=== PATIENT | female | born 1990 | race American Indian/Alaskan Native ===

== ENCOUNTER 2019-02-10 07:19 | Inpatient (IN) | payer OTHER ==
[2019-02-10] MEDS ORDERED: FAMOTIDINE 20 MG/2 ML INJ IV ONE ×2 (07:40→08:30)
[2019-02-10] MEDS ORDERED: BICITRA ORAL LIQD 30ML ONE (07:41)
[2019-02-10] MEDS ORDERED: METOCLOPRAMIDE 10 MG/2 ML INJ ONE (07:41)
[2019-02-10] MEDS ORDERED: ceFAZolin/Water 2 GM/20 ML 2 GM/20 ML SYRINGE IV ONE (07:41)
[2019-02-10] MEDS ORDERED: LACTATED RINGERS 2,000 ML ONE (07:46)
--- NOTE | 2019-02-10 07:54 | History and Physical Report ---
History of Present Illness Date of examination: 02/10/19 Date of admission: 02/10/19 07:19 Chief complaint: Repeat C Section History of present illness: Pt is a 29yo BF EDC 02/17/19; EGA 39 0/7 weeks presents for a Repeat C Section. She received care at [facility] since 10 weeks and co-managed with [facility] for previous C Section x 2 and Morbid obesity. records are available and GBS is Negative. Past History Past Medical History: other (morbid obesity) Past Surgical History: section (x2) Family/Genetic History: none Social history: no significant social history, - Obstetrical History Expected Date of Delivery: 02/17/19 Actual Gestation: 39 Week(s) 0 Day(s) Medications and Allergies Allergies Allergy/AdvReac Type Severity Reaction Status Date / Time No Known Allergies Allergy Verified 02/10/19 08:15 Active Meds: Active Medications Citric Acid/Sodium Citrate (Bicitra) 30 ml PO ONCE ONE Stop: 02/10/19 07:48 Famotidine (Pepcid) 20 mg IV ONCE ONE Stop: 02/10/19 07:48 Metoclopramide HCl (Reglan) 10 mg IV ONCE ONE Stop: 02/10/19 07:48 Review of Systems All systems: negative - Vital Signs Vital signs: Vital Signs Pulse BP 80 131/74 02/10/19 07:47 02/10/19 07:47 Temp Pulse Resp BP Pulse Ox 80 131/74 02/10/19 07:47 02/10/19 07:47 - Physical Exam Breasts: Positive: deferred Cardiovascular: Regular rate Lungs: Positive: Clear to auscultation Abdomen: Positive: normal appearance Genitourinary (Female): Positive: normal external genitalia Uterus: Positive: enlarged Extremities: Positive: normal - Obstetrical FHR: category 1 Uterine Contraction Monitor Mode: External Results Result Diagrams: 02/10/19 07:54 All other labs normal. Assessment and Plan - Patient Problems (1) 39 weeks gestation of Onset Date: 02/10/19 Current Visit: Yes Status: Acute Plan to address problem: A: IUP @ 39 0/7 weeks Previous C Section x 2 Morbid obesity P: Admit to L&D for repeat C Section (2) Previous section Onset Date: 02/10/19 Current Visit: Yes Status: Acute
[2019-02-10] MEDS ORDERED: ceFAZolin/Water 2 GM/20 ML 2 GM/20 ML SYRINGE IV NR (08:00)
[2019-02-10] MEDS ORDERED: LACTATED RINGERS 1,000 ML IV SCH (08:00)
[2019-02-10] MEDS ORDERED: OXYTOCIN 20 UNIT/1000ML DRIP 20 UNITS/1,000 ML BAG IV SCH ×2 (08:00→11:00)
[2019-02-10 08:05] LABS: Basophils # (Auto) 0.1 K/mm3 (0.0-0.1); Basophils % (Auto) 0.9 % (0.0-1.8); Eosinophils # (Auto) 0.1 K/mm3 (0.0-0.4); Eosinophils % (Auto) 1.4 % (0.0-4.3); Hematocrit 37.6 % (30.3-42.9); Lymphocytes # (Auto) 1.9 K/mm3 (1.2-5.4); Lymphocytes % (Auto) 25.3 % (13.4-35.0); Mean Corpuscular HGB Conc 35 % (30-34); Mean Corpuscular Volume 95 fl (79-97); Monocytes # (Auto) 0.6 K/mm3 (0.0-0.8); Monocytes % (Auto) 8.2 % (0.0-7.3); Platelet Count 174 K/mm3 (140-440); Red Blood Count 3.98 M/mm3 (3.65-5.03); Red Cell Distribution Width 12.8 % (13.2-15.2)
--- NOTE | 2019-02-10 08:11 | Anesthesia Consultation ---
Anesthesia Consult and Med Hx Date of service: 02/10/19 - Airway Anesthetic Teeth Evaluation: Good ROM Head & Neck: Adequate Mental/Hyoid Distance: Adequate Mallampati Class: Class II Intubation Access Assessment: Good - Pulmonary Exam CTA: Yes - Cardiac Exam Cardiac Exam: RRR - Pre-Operative Health Status ASA Pre-Surgery Classification: ASA2 Proposed Anesthetic Plan: Spinal - Pulmonary Hx Asthma: No - Cardiovascular System Hx Hypertension: No - Central Nervous System Hx Seizures: No Hx Psychiatric Problems: No - Endocrine Hx Renal Disease: No Hx Hypothyroidism: No Hx Hyperthyroidism: No - Hematic Hx Anemia: No Hx Sickle Cell Disease: No - Other Systems Hx Alcohol Use: No Hx Obesity: Yes
--- NOTE | 2019-02-10 08:12 | Anesthesia Day of Surgery ---
Anesthesia Day of Surgery - Day of Surgery Patient Examined: Yes Patient H&P Reviewed: Yes Patient is NPO: Yes
[2019-02-10] MEDS ORDERED: DEXMEDETOMIDINE 200 MCG/2 ML VIAL IV ONE (08:23)
[2019-02-10] MEDS ORDERED: ONDANSETRON 4 MG/2 ML INJ ONE (08:23)
[2019-02-10] MEDS ORDERED: HYDROmorphone 1 MG/1 ML INJ IV PRN ×2 (08:30→09:00)
[2019-02-10] MEDS ORDERED: BICITRA ORAL LIQD 30ML PO ONE (08:30)
[2019-02-10] MEDS ORDERED: ONDANSETRON 4 MG/2 ML INJ IV PRN (08:30)
[2019-02-10] MEDS ORDERED: PROMETHAZINE 25 MG TAB PO PRN (08:30)
[2019-02-10] MEDS ORDERED: NALOXONE 0.4 MG/1 ML INJ IV PRN ×2 (08:30→11:00)
[2019-02-10] MEDS ORDERED: PROMETHAZINE 25 MG RECT SUPP PR PRN (08:30)
[2019-02-10] MEDS ORDERED: METOCLOPRAMIDE 10 MG/2 ML INJ IV ONE (08:30)
[2019-02-10] MEDS ORDERED: fentaNYL-BUPIV 2 MCG/ML-0.125% 200 MCG/100 ML BAG EPIDURAL SCH (09:00)
[2019-02-10] MEDS ORDERED: WATER FOR IRRIG STERILE 1,500 ML BOTTLE IR ONE (09:12)
[2019-02-10] MEDS ORDERED: SODIUM CHLORIDE 0.9% IRR 1,500 ML BOTTLE IR ONE (09:12)
[2019-02-10] MEDS ORDERED: diphenhydrAMINE 50 MG/ML VIAL ONE (09:30)
[2019-02-10] MEDS ORDERED: KETOROLAC 30 MG/1 ML INJ ONE (09:30)
[2019-02-10] MEDS ORDERED: PHENYLEPHRINE 10 MG/1 ML INJ SDV ONE (09:40)
--- NOTE | 2019-02-10 09:56 | Operative Report ---
Operative Report Operative Report: Date of procedure: 02/10/2019 Pre-operative diagnosis: 1. Intrauterine at 39 0/7 weeks 2. Previ ous C Section x 2 3. Morbid obesity Post-operative diagnosis: same Procedure name(s): Repeat low transverse section Surgeon: Johnathon Hussein MD Jig Boring Machine Operator For Metal: None Anesthesia: Spinal anesthesia by Ricky Eng CRNA EBL: 500 mL's Findings: A 2943 gm female Apgars 8 at 1 minute 9 at 5 minutes. Clear amniotic fluid. Normal uterus. Normal tubes and ovaries bilaterally. Procedure: After the patient was prepped and draped in usual sterile fashion, and after satisfactory level of spinal anesthesia was obtained, the skin knife was used to make a transverse skin incision through the previous skin scars. The incision was incised down to layer of the fascia, which was nicked in the midline and extended laterally using the Bovie cautery. The rectus muscles were dissected off the rectus fascia both superiorly and inferiorly. The rectus bellies in the midline, and the peritoneum was entered under direct visualization. The peritoneal incision was extended superiorly and inferiorly. A bladder flap was created and the bladder blade was then placed. The uterus was scored in a curvilinear linear fashion, entered in the midline revealing clear amniotic fluid. The infant's head was delivered onto the surgical field with the aid of a vacuum, and the oropharynx and nasopharynx were bulb suctioned. The rest of the 's body was delivered, cord was doubly clamped and cut and the was handed to the awaiting respiratory team. The placenta was manually removed from the uterus, and the uterus removed from its normal anatomical position. After gentle uterine lavage, the incision was inspected and found to be without extensions. It was then closed in 2 layers using 0 Vicryl suture in a running interlocking fashion, the second layer imbricating the first. After good hemostasis was achieved, copious amounts or irrigation was performed, and the gutters were suctioned free of blood and blood clots. The peritoneum was re-approximated using 3-0 Vicryl suture in a running interlocking fashion, and then the rectus muscles were loosely re-approximated using 3-0 Vicryl suture in a [id number] configuration. The fascia was then re-approximated using 0 Vicryl suture in running interlocking fashion. The subcutaneous layer was made hemostatic using Bovie cautery, and the skin edges re-approximated using 4-0 Vicryl suture in a sub-cuticular fashion. Patient tolerated the procedure well was transported to recovery in stable condition.
[2019-02-10] MEDS ORDERED: ACETAMINOPHEN 325 MG TAB PO PRN (10:01)
--- NOTE | 2019-02-10 10:07 | Post Anesthesia Evaluation ---
- Post Anesthesia Evaluation Patient Participated: Yes Airway Patent: Yes Stable Respiratory Function: Yes Nausea/Vomiting: No Temp > 96.8F: Yes Pain Manageable: Yes Adequeate Hydration: Yes Anesthesia Complications: No Block Receding Appropriately: Yes Patient on Ventilator: No
[2019-02-10] MEDS ORDERED: WITCH HAZEL/ GLYCERIN PAD TP PRN (10:30)
[2019-02-10] MEDS ORDERED: SIMETHICONE 80 MG CHEW TAB PO PRN (10:30)
[2019-02-10] MEDS ORDERED: LANOLIN/ZINC/DIMETHICONE (LANSINOH) 7 GM TP PRN (10:30)
[2019-02-10] MEDS: KETOROLAC 30 MG/1 ML INJ IV PRN ×2 (15:18→23:53)
[2019-02-10] MEDS: D5W/LACTATED RINGERS 1,000 ML IV SCH ×2 (15:19→23:54)
[2019-02-10 15:47] LABS: Hematocrit 35.4 % (30.3-42.9); Hemoglobin 12.3 gm/dl (10.1-14.3)
[2019-02-10] MEDS: ceFAZolin/NS 1 GM/50 ML 1 GM/50 ML BAG IV SCH (16:59)
[2019-02-10] MEDS: oxyCODONE /ACETAMINOPHEN 5-325MG TAB PO PRN (20:13)
[2019-02-10] MEDS: MAGNESIUM HYDROXIDE (MOM) ORAL LIQD UDC PO PRN (20:14)
[2019-02-10 22:04] LABS: Hematocrit 34.2 % (30.3-42.9); Hemoglobin 11.9 gm/dl (10.1-14.3)
[2019-02-11] MEDS: ceFAZolin/NS 1 GM/50 ML 1 GM/50 ML BAG IV SCH (00:49)
[2019-02-11] MEDS: oxyCODONE /ACETAMINOPHEN 5-325MG TAB PO PRN ×2 (05:05→19:47)
[2019-02-11] MEDS ORDERED: TETANUS,DIPH,PERTUSS(ACELL) VACCINE 0.5 ML SYRINGE IM ONE (06:00)
--- NOTE | 2019-02-11 08:50 | Progress Note ---
Assessment and Plan - Patient Problems (1) 39 weeks gestation of Onset Date: 02/10/19 Current Visit: Yes Status: Resolved (2) Previous section Onset Date: 02/10/19 Current Visit: Yes Status: Chronic (3) Acute blood loss anemia Onset Date: 02/11/19 Current Visit: Yes Status: Resolved (4) Status post Onset Date: 02/11/19 Current Visit: Yes Status: Resolved Plan to address problem: A: S/P Repeat C Section - POD #1 Doing well Asymptomatic anemia - stable P: Continue RPOC Anticipate discharge in 24-48hrs Subjective - Subjective Date of service: 02/11/19 Principal diagnosis: s/p Repeat C Section - POD #1 Interval history: Pt is feeling well without complaints. Bleeding improved. Patient reports: appetite normal, voiding normally, pain well controlled, flatus, ambulating normally, no dizzy ambulation, no nauseated [place]: doing well, nursing well Objective - Vital Signs Latest vital signs: Vital Signs Temp Pulse Resp BP BP Pulse Ox 02/11/19 06:25 98.3 F 70 18 107/69 98 02/11/19 05:05 20 02/11/19 02:06 98.4 F 71 18 100/49 100 02/10/19 22:20 98.3 F 72 20 107/53 97 02/10/19 16:37 98.3 F 64 20 102/52 99 02/10/19 11:56 97.6 F 62 16 102/49 100 02/10/19 11:15 97.6 F 02/10/19 11:05 69 16 98/46 100 02/10/19 10:50 64 16 89/41 100 02/10/19 10:35 66 16 95/48 100 02/10/19 10:20 64 16 84/41 100 02/10/19 10:15 65 16 84/41 100 02/10/19 10:10 70 18 91/43 100 02/10/19 10:06 97.8 F 72 18 82/38 100 02/10/19 08:48 82 99 Intake and Output 02/10/19 02/11/19 02/11/19 22:59 06:59 14:59 Intake Total 310 1240 Output Total 500 500 Balance -190 740 Intake: IV 50 1000 ANCEF/NS 1 GM/50 ML 1 gm 50 In 50 ml @ 100 mls/hr IV Q8H MACY Rx#:[id number] D5lr 1,000 ml @ 125 mls/ 1000 hr IV DIRECT MACY Rx#: [id number] Intake, Free Water 260 240 Output: Urine 500 500 Indwelling Catheter 500 Void 500 Other: Total, Output Amount 500 500 # Voids Void 1 - Exam Breasts: Present: deferred Abdomen: Present: normal appearance, soft Uterus: Present: normal, firm, fundal height below umbilicus Extremities: Present: normal Incision: Present: normal, dry, intact, dressed - Labs Labs: Laboratory Tests 02/10/19 02/10/19 02/10/19 07:54 07:54 15:14 WBC 7.4 RBC 3.98 Hgb 13.0 12.3 Hct 37.6 35.4 MCV 95 MCH 33 H MCHC 35 H RDW 12.8 L Plt Count 174 Lymph % (Auto) 25.3 Carter % (Auto) 8.2 H Eos % (Auto) 1.4 Baso % (Auto) 0.9 Lymph # 1.9 Carter # 0.6 Eos # 0.1 Baso # 0.1 Seg Neutrophils % 64.2 Seg Neutrophils # 4.8 Blood Type AB POSITIVE Antibody Screen Negative 02/10/19 21:31 WBC RBC Hgb 11.9 Hct 34.2 MCV MCH MCHC RDW Plt Count Lymph % (Auto) Carter % (Auto) Eos % (Auto) Baso % (Auto) Lymph # Carter # Eos # Baso # Seg Neutrophils % Seg Neutrophils # Blood Type Antibody Screen
[2019-02-11] MEDS: SENNOSIDES 8.6 MG TAB PO PRN (09:02)
[2019-02-11] MEDS: HYDROcodone/ACETAMINOPHEN 5-325 MG TAB PO PRN ×2 (09:02→15:50)
[2019-02-11] MEDS: PRENATAL VIT27-FE FUMARATE-FOLIC ACID VIT TAB PO SCH (09:02)
[2019-02-11] MEDS: FERROUS SULFATE 325 MG TAB PO SCH (09:02)
[2019-02-11] MEDS ORDERED: MEASLES, MUMPS & RUBELLA 12,500 UNIT/0.5 ML VACCINE SUB-Q ONE (11:00)
[2019-02-11] MEDS: IBUPROFEN 800 MG TAB PO PRN (12:47)
[2019-02-12] MEDS: IBUPROFEN 800 MG TAB PO PRN ×2 (00:55→13:22)
[2019-02-12] MEDS: MAGNESIUM HYDROXIDE (MOM) ORAL LIQD UDC PO PRN ×2 (01:00→21:37)
[2019-02-12] MEDS: oxyCODONE /ACETAMINOPHEN 5-325MG TAB PO PRN ×2 (09:16→21:36)
[2019-02-12] MEDS: PRENATAL VIT27-FE FUMARATE-FOLIC ACID VIT TAB PO SCH (09:16)
[2019-02-12] MEDS: FERROUS SULFATE 325 MG TAB PO SCH (09:16)
--- NOTE | 2019-02-12 12:24 | Progress Note ---
Assessment and Plan - Patient Problems (1) 39 weeks gestation of Onset Date: 02/10/19 Current Visit: Yes Status: Resolved (2) Previous section Onset Date: 02/10/19 Current Visit: Yes Status: Chronic (3) Acute blood loss anemia Onset Date: 02/11/19 Current Visit: Yes Status: Resolved (4) Status post Onset Date: 02/11/19 Current Visit: Yes Status: Resolved Plan to address problem: A: S/P Repeat C Section - POD #2 Doing well Asymptomatic anemia - stable P: Continue RPOC Anticipate discharge in 24hrs Subjective - Subjective Date of service: 02/12/19 Principal diagnosis: s/p Repeat C Section - POD #2 Interval history: Pt is feeling well without complaints. She is tolerating a reg diet without nausea or vomiting, ambulating and voiding without difficulty. Patient reports: appetite normal, voiding normally, pain well controlled, flatus, ambulating normally, no dizzy ambulation, no nauseated : doing well, nursing well, bottle feeding Objective - Vital Signs Latest vital signs: Vital Signs Temp Pulse Resp BP BP Pulse Ox 02/12/19 09:20 98.6 F 72 20 125/76 02/12/19 00:26 98.5 F 83 20 123/69 100 02/11/19 15:37 98.3 F 77 18 124/53 97 02/11/19 12:47 20 Intake and Output 02/11/19 02/12/19 02/12/19 22:59 06:59 14:59 Intake Total 1200 480 240 Balance 1200 480 240 Intake: Oral 480 480 240 Intake, Free Water 720 Other: Total, Intake Amount 480 480 240 # Voids Void 3 1 1 - Exam Breasts: Present: deferred Abdomen: Present: normal appearance, soft Uterus: Present: normal, firm, fundal height below umbilicus Extremities: Present: normal Incision: Present: normal, dry, intact
[2019-02-12] MEDS: SENNOSIDES 8.6 MG TAB PO PRN ×2 (21:37→21:38)
[2019-02-13] MEDS: IBUPROFEN 800 MG TAB PO PRN (00:21)
[2019-02-13] MEDS: PRENATAL VIT27-FE FUMARATE-FOLIC ACID VIT TAB PO SCH (09:52)
[2019-02-13] MEDS: FERROUS SULFATE 325 MG TAB PO SCH (09:52)
[2019-02-13] MEDS: oxyCODONE /ACETAMINOPHEN 5-325MG TAB PO PRN (09:52)
--- NOTE | 2019-02-13 10:10 | Discharge Summary ---
Providers - Providers Date of Admission: 02/10/19 07:19 Date of discharge: 02/13/19 Attending physician: ROSE MARSH Primary care physician: ROSE MARSH Hospitalization Reason for admission: section, IUP at term Delivery: Procedure: section, repeat low transverse Episiotomy: none Laceration: none Incision: normal, dry, intact Other procedures: none complications: none Discharge diagnosis: IUP at term delivered [place] baby: female Hospital course: Pt is a 29yo BF EDC 02/17/19; EGA 39 0/7 weeks who presented for a Repeat C Section. She received care at [facility] since 10 weeks and co-managed with [facility] for previous C Section x 2 and Morbid obesity. She underwent an uncomplicated repeat C Section and post operative course was unremarkable. By POD #2 she was tolerating a reg diet without nausea or vomiting, ambulating and voiding without difficulty. She was therefore discharged to home on POD #3 in stable condition. Condition at discharge: Good Disposition: DC-[id number] TO HOME OR SELFCARE - Discharge Diagnoses (1) 39 weeks gestation of Status: Resolved (2) Previous section Status: Chronic (3) Acute blood loss anemia Status: Resolved (4) Status post Status: Resolved Plan - Discharge Medications Prescriptions: Docusate Sodium [Colace] 100 mg PO BID PRN #60 capsule PRN Reason: Constipation Ferrous Sulfate [Feosol 325 MG tab] 325 mg PO BID #60 tablet Ibuprofen [Motrin 800 MG tab] 800 mg PO Q6H PRN #30 tablet PRN Reason: Pain, Mild (1-3) oxyCODONE /ACETAMINOPHEN [Percocet 5/325 mg] 1 tab PO Q6H PRN #30 tablet PRN Reason: Pain, Moderate (4-6) Vit-Fe Fumar-FA [ Vitamin] 1 each PO QDAY #30 tablet - Provider Discharge Summary Activity: routine, no sex for 6 weeks, no heavy lifting 4 weeks, no strenuous exercise Diet: routine Instructions: routine Additional instructions: [] Smoking cessation referral if applicable(refer to patient education folder for contact #) [] Refer to [facility] Booklet Call your doctor immediately for: * Fever > 100.5 * Heavy vaginal bleeding ( >1 pad per hour) * Severe persistent headache * Shortness of breath * Reddened, hot, painful area to leg or breast * Drainage or odor from incision. * Keep incision clean and dry at all times and follow doctor's instructions regarding bathing/showering - Follow up plan Follow up: ROSE MARSH MD [Primary Care Provider] - 14 Days SHI MAGANA CNM [Advanced Practice Nurse] - 14 Days
[2019-02-13 15:56] VITALS: BP 130/76
== END 2019-02-13 15:55 | disposition home or self-care (01) | DRG 787 ==
LOC: APU 07:19 → OB 12:13
PROVIDERS: ADMIT Obstetrics & Gynecology; ATTEND Obstetrics & Gynecology
PROC: 10D00Z1 Extraction of Products of Conception, Low, Open Approach (ICD-10-PCS; principal; 2019-02-10)
PROC: 3E0134Z Introduction of Serum, Toxoid and Vaccine into Subcutaneous Tissue, Percutaneous Approach (ICD-10-PCS; 2019-02-11)
PROC: 3E0234Z Introduction of Serum, Toxoid and Vaccine into Muscle, Percutaneous Approach (ICD-10-PCS; 2019-02-11)
DX: O99.214 Obesity complicating childbirth (principal); D62 Acute posthemorrhagic anemia; O34.211 Maternal care for low transverse scar from previous cesarean delivery; E66.01 Morbid (severe) obesity due to excess calories; Z3A.39 39 weeks gestation of pregnancy; Z37.0 Single live birth; Z23 Encounter for immunization; O90.81 Anemia of the puerperium
CPT/HCPCS: 36415; 85014; 85018; 85025; 86850; 86900; 86901; G0378; J0690; J1200; J1885; J2370; J2405; J2590; J2765; J3490; J7120; J7121

== ENCOUNTER 2020-06-12 16:16 | Outpatient (CLI) | payer OTHER ==
[2020-06-12 16:50] VITALS: BP 121/66
--- NOTE | 2020-06-12 20:57 | Ultrasound Report ---
US OB BPP wo non-stress INDICATION / CLINICAL INFORMATION: WELL BEING. COMPARISON: None available. FINDINGS: BPP is 8/8 with heart rate 159 IMPRESSION: BPP is 8/8 with heart rate 159 Signer Name: Andre Sena MD FACR Signed: 06/12/2020 8:53 PM Workstation Name: [id number]
== END 2020-06-12 20:15 | disposition home or self-care (01) ==
LOC: TRG 16:16 → APU 16:20 → TRG 20:15
PROVIDERS: ATTEND Obstetrics & Gynecology
DX: Z34.93 Encounter for supervision of normal pregnancy, unspecified, third trimester (principal); Z3A.29 29 weeks gestation of pregnancy
CPT/HCPCS: 59025; 76819

== ENCOUNTER 2020-07-31 18:07 | Outpatient (CLI) | payer BC ==
[2020-07-31] MEDS ORDERED: BETAMET ACET/BETAMET NA PH 6 MG/ML INJ 5 ML MDV IM SCH (18:11)
[2020-07-31] MEDS ORDERED: LACTATED RINGERS 1,000 ML IV SCH (18:15)
[2020-07-31 18:37] VITALS: BP 134/71
== END 2020-07-31 18:50 | disposition home or self-care (01) ==
LOC: TRG 18:07 → APU 18:09 → TRG 18:50
PROVIDERS: ATTEND Obstetrics & Gynecology
DX: O47.03 False labor before 37 completed weeks of gestation, third trimester (principal); Z3A.36 36 weeks gestation of pregnancy
CPT/HCPCS: 59025; 96372; J0702

== ENCOUNTER 2020-08-21 22:34 | Emergency (ER) | payer BC ==
[2020-08-22 00:03] VITALS: BP 135/83
[2020-08-22] MEDS ORDERED: ONDANSETRON 4 MG ODT TAB PO ONE (01:00)
[2020-08-22 01:08] LABS: Bilirubin,Urine NEG (Negative); Blood,Urine MOD (Negative); Color,Urine Straw (Yellow); Protein,Urine <15 mg/dL mg/dL (Negative); Urobilinogen,Urine < 2.0 mg/dL (<2.0)
[2020-08-22 01:16] LABS: Hematocrit 36.8 % (30.3-42.9); Hemoglobin 12.6 gm/dl (10.1-14.3); Mean Corpuscular HGB Conc 34 % (30-34); Mean Corpuscular Volume 95 fl (79-97); Platelet Count 207 K/mm3 (140-440); Red Blood Count 3.88 M/mm3 (3.65-5.03); Red Cell Distribution Width 12.4 % (13.2-15.2)
[2020-08-22 01:53] LABS: Albumin 3.9 g/dL (3.9-5); Calcium 9.9 mg/dL (8.4-10.2); Total Cells Counted 100
[2020-08-22 01:54] LABS: Platelet Estimate Consistent w Auto; RBC Morphology Normal
--- NOTE | 2020-08-22 07:50 | Event Note ---
ED Screening Note ED Screening Note: Patient found in the main waiting room this morning. She is been here overnight. She is about 2 weeks. And has had persistent nausea and vomiting. Patient noted to have an ANTOINE on labs ordered by the nursing staff. This initial assessment/diagnostic orders/clinical plan/treatment(s) is/are s ubject to change based on patients health status, clinical progression and re- assessment by fellow clinical providers in the ED. Further treatment and workup at subsequent clinical providers discretion. Patient/guardian urged not to elope from the ED as their condition may be serious if not clinically assessed and managed. Initial orders include: Patient waiting for a bed to become available. She will need IV hydration.
[2020-08-22] MEDS ORDERED: SODIUM CHLORIDE 0.9% 1000 ML 1,000 ML IV ONE (08:20)
== END 2020-08-22 00:30 | disposition left against medical advice (07) ==
LOC: ED 22:34
DX: R11.0 Nausea (principal); Z53.21 Procedure and treatment not carried out due to patient leaving prior to being seen by health care provider
CPT/HCPCS: 36415; 80053; 81001; 83690; 85007; 85025